=== PATIENT | male | born 1945 | race Caucasian/White ===

== ENCOUNTER 2022-07-16 12:53 | Emergency (ER) | payer MEDICARE, OTHER, SELFPAY ==
[2022-07-16 13:19] VITALS: BP 144/66; PULSE 89; RESP 14; TEMP 36.1; O2SAT 97; BMI 39.5
[2022-07-16 14:13] LABS: Add Manual Diff / Slide Review NO; Basophils Absolute Auto 100 /uL (0-100); Basophils Percent Auto 0.8 % (0-2); Eosinophils Absolute Auto 300 /uL (0-450); Eosinophils Percent Auto 4.5 % (2-4); Hematocrit 37.4 % (41-53); Hemoglobin 12.8 g/dL (13.5-17.5); Lymphocytes Absolute Auto 1200 /uL (1100-4500); Lymphocytes Percent Auto 16.5 % (25-40); Mean Corpuscular HGB Conc 34.1 % (30-36); Mean Corpuscular Hemoglobin 32.8 PG (26-34); Mean Corpuscular Volume 96.3 fL (80-100); Monocytes Absolute Auto 700 /uL (0-900); Monocytes Percent Auto 9.1 % (3-14); Neutrophils Absolute Auto 5200 /uL (1500-7000); Neutrophils Percent Auto 69.1 % (50-75); Platelet Count 275 X10^3/uL (150-400); Red Blood Cell Count 3.89 X10^6/uL (4.5-5.9); Red Cell Distribution Width 14.6 % (11.6-14.8); White Blood Cell Count 7.5 X10^3/uL (4.5-11.0)
[2022-07-16 14:25] LABS: Alanine Aminotransferase 25 IU/L (<50); Albumin 4.2 g/dL (3.5-5.0); Albumin Globulin Ratio 1.2 (1.0-2.8); Alkaline Phosphatase 62 U/L (38-126); Aspartate Aminotransferase 25 IU/L (17-59); Bilirubin Total 0.5 mg/dL (0.2-1.3); Blood Urea Nitrogen 25 mg/dL (9-20); Calcium 8.5 mg/dL (8.4-10.2); Carbon Dioxide 26 mmol/L (22-32); Chloride 104 mmol/L (98-107); Estimated Glomerular Filt Rate > 60 mL/min (>60); Globulin 3.5 g/dL (1.7-4.1); Glucose 111 mg/dL (80-110); HEMOLYSIS 31 (0-50); Lipase 83 U/L (23-300); Potassium 3.9 mmol/L (3.4-5.1); Sodium 139 mmol/L (137-145); Total Protein 7.7 g/dL (6.3-8.2)
[2022-07-16 15:36] VITALS: BP 182/81; PULSE 89; RESP 18; O2SAT 99
--- NOTE | 2022-07-16 16:09 | ED.LOWEXIN ---
HPI - Extremity Injury (Lower) <RAMONA Johnson - Last Filed: 07/16/22 16:18> General Chief Complaint: Extremity Injury, Lower Stated Complaint: leg wound T-7 days,not healing Time Seen by Provider: 07/16/22 13:26 Source: patient Mode of arrival: Ambulatory History of Present Illness HPI Narrative: 77-year-old male, never smoker on blood thinners, presents to the emergency department with suspected left lower leg cellulitis. Patient has had history of cellulitis of his left lower leg in the past. Patient states that he was working on his deck 7 days ago and was smacked on his left acharya with a 2 x 4 board that resulted in a blood blister that has now developed redness, warmth and swelling surrounding blood blister. Blood blister is weeping frequently. Patient has been keeping the area clean and dry and applying antibiotic ointment, but is concerned about developing cellulitis. Related Data Home Medications Medication Instructions Recorded Confirmed amlodipine 2.5 mg tablet (Norvasc) ##0 06/18/16 atorvastatin 10 mg tablet (Lipitor) ##0 06/18/16 hydrochlorothiazide 12.5 mg capsule ##0 06/18/16 losartan 25 mg tablet (Cozaar) ##0 06/18/16 Previous Rx's Medication Instructions Recorded sulfamethoxazole 800 1 tab PO QDAY #14 tabs 06/18/16 mg-trimethoprim 160 mg tablet cephalexin 500 mg capsule 1,000 mg PO BID Cellulitis 10 days 07/16/22 #40 caps Allergies Allergy/AdvReac Type Severity Reaction Status Date / Time No Known Drug Allergies Allergy Verified 07/16/22 13:18 Review of Systems <RAMONA Johnson - Last Filed: 07/16/22 16:18> Review of Systems Narrative: Narrative: See HPI. GENERAL: Denies chills, fatigue, fever, sweats. HEENT: Denies sinus pain, ear pain, sore throat, difficulty swallowing, dizziness. RESPIRATORY: Denies dyspnea, cough, wheezing, sputum. CARDIOVASCULAR: Denies chest pain, palpitations, edema. GASTROINTESTINAL: Denies nausea, vomiting, abdominal pain, diarrhea, constipation. : Denies dysuria, frequency, incontinence, hematuria, urinary retention, flank pain. MSK: Denies weakness, joint pain, or bony pain. SKIN: Endorses increased redness, warmth and swelling of left ahcarya. 2 in diameter blood blister. NEUROLOGIC: Denies weakness, dizziness, headache, numbness, confusion. PSYCHIATRIC: No concerning psychosocial issues. Patient History <RAMONA Johnson - Last Filed: 07/16/22 16:18> Social History Smoking Status: Never smoker Smoking Status: Never smoker alcohol intake frequency: 3 or more drinks per day Substance Use Type: does not use Exam <RAMONA Johnson - Last Filed: 07/16/22 16:18> Narrative Exam Narrative: Exam Narrative: GENERAL: This is a well-nourished, well-developed patient, in no acute distress. HEAD: Atraumatic. Normocephalic. EYES: Pupils equal round and reactive. Extraocular motions intact. No scleral icterus, injection or drainage. ENT: Nose without bleeding, purulent drainage. Airway patent. RESPIRATORY: Normal respiratory rate and effort. MSK: Moves all extremities. Normal range of motion, no clubbing or edema. Neurovascularly intact. NEURO: A&O x 3. SKIN: Warm, dry, no rashes noted. 2 in diameter bled blister on left acharya with surrounding redness, warmth and pain consistent with cellulitis. Initial Vital Signs Initial Vital Signs: Vital Signs Temperature 97.0 F L 07/16/22 13:19 Pulse Rate 89 07/16/22 13:19 Respiratory Rate 14 07/16/22 13:19 Blood Pressure 144/66 H 07/16/22 13:19 Pulse Oximetry 97 07/16/22 13:19 Oxygen Delivery Method Room Air 07/16/22 13:19 Reviewed <Ivone Handley DO - Last Filed: 07/17/22 07:35> Initial Vital Signs Initial Vital Signs: Vital Signs Temperature 97.0 F L 07/16/22 13:19 Pulse Rate 89 07/16/22 13:19 Respiratory Rate 14 07/16/22 13:19 Blood Pressure 144/66 H 07/16/22 13:19 Pulse Oximetry 97 07/16/22 13:19 Oxygen Delivery Method Room Air 07/16/22 13:19 Course <RAMONA Johnson - Last Filed: 07/16/22 16:18> Orders Ordered: ED Orders 07/16/22 13:55 Complete Blood Count AUTO DIFF Stat Comprehensive Metabolic Panel Stat Lipase Stat Vital Signs Vital signs: Vital Signs - 8 hr 07/16/22 13:19 07/16/22 15:36 Temperature 97.0 F L Pulse Rate 89 89 Respiratory Rate 14 18 Blood Pressure 144/66 H 182/81 H Pulse Oximetry 97 99 Oxygen Delivery Method Room Air Room Air <Ivone Handley DO - Last Filed: 07/17/22 07:35> Orders Ordered: ED Orders 07/16/22 13:55 Complete Blood Count AUTO DIFF Stat Comprehensive Metabolic Panel Stat Lipase Stat Vital Signs Vital signs: Vital Signs - 8 hr 07/16/22 13:19 07/16/22 15:36 Temperature 97.0 F L Pulse Rate 89 89 Respiratory Rate 14 18 Blood Pressure 144/66 H 182/81 H Pulse Oximetry 97 99 Oxygen Delivery Method Room Air Room Air MDM - Extremity Injury (Lower) <RAMONA Johnson - Last Filed: 07/16/22 16:18> Differential Diagnosis Differential diagnosis: Likely other (Cellulitis of left lower extremity) Lab Data 07/16/22 13:55 07/16/22 13:55 Labs: Lab Results 07/16/22 07/16/22 Range/Units 13:55 13:55 WBC 7.5 (4.5-11.0) X10^3/uL RBC 3.89 L (4.5-5.9) X10^6/uL Hgb 12.8 L (13.5-17.5) g/dL Hct 37.4 L (41-53) % MCV 96.3 (80-100) fL MCH 32.8 (26-34) PG MCHC 34.1 (30-36) % RDW 14.6 (11.6-14.8) % Plt Count 275 (150-400) X10^3/uL Neut % (Auto) 69.1 (50-75) % Lymph % (Auto) 16.5 L (25-40) % [place] % (Auto) 9.1 (3-14) % Eos % (Auto) 4.5 H (2-4) % Baso % (Auto) 0.8 (0-2) % Neut # (Auto) 5200 (4432-5850) /uL Lymph # (Auto) 1200 (7352-9609) /uL [place] # (Auto) 700 (0-900) /uL Eos # (Auto) 300 (0-450) /uL Baso # (Auto) 100 (0-100) /uL Sodium 139 (137-145) mmol/L Potassium 3.9 (3.4-5.1) mmol/L Chloride 104 (98-107) mmol/L Carbon Dioxide 26 (22-32) mmol/L BUN 25 H (9-20) mg/dL Creatinine 1.04 (0.66-1.25) mg/dL Estimated GFR > 60 (>60) mL/min BUN/Creatinine Ratio 24.0 H (6-22) Glucose 111 H (80-110) mg/dL Calcium 8.5 (8.4-10.2) mg/dL Total Bilirubin 0.5 (0.2-1.3) mg/dL AST 25 (17-59) IU/L ALT 25 (<50) IU/L Alkaline Phosphatase 62 (38-126) U/L Total Protein 7.7 (6.3-8.2) g/dL Albumin 4.2 (3.5-5.0) g/dL Globulin 3.5 (1.7-4.1) g/dL Albumin/Globulin Ratio 1.2 (1.0-2.8) Lipase 83 (23-300) U/L MDM Narrative Medical decision making narrative: 77-year-old male, with history left lower leg cellulitis, presents to the emergency department after injuring his left leg one-week ago. Patient denies any increased pain but is concerned that he is developing cellulitis. Assessment was consistent with cellulitis. Will treat with cephalexin for 10 days. Instructed patient to follow up with family doctor later this week to ensure symptoms are improving. Discussed strict ER return precautions, for which patient verbalized understanding and was agreeable to course of action. <Ivone Handley, DO - Last Filed: 07/17/22 07:35> Lab Data Labs: Lab Results 07/16/22 07/16/22 Range/Units 13:55 13:55 WBC 7.5 (4.5-11.0) X10^3/uL RBC 3.89 L (4.5-5.9) X10^6/uL Hgb 12.8 L (13.5-17.5) g/dL Hct 37.4 L (41-53) % MCV 96.3 (80-100) fL MCH 32.8 (26-34) PG MCHC 34.1 (30-36) % RDW 14.6 (11.6-14.8) % Plt Count 275 (150-400) X10^3/uL Neut % (Auto) 69.1 (50-75) % Lymph % (Auto) 16.5 L (25-40) % [place] % (Auto) 9.1 (3-14) % Eos % (Auto) 4.5 H (2-4) % Baso % (Auto) 0.8 (0-2) % Neut # (Auto) 5200 (6485-8078) /uL Lymph # (Auto) 1200 (2284-7138) /uL [place] # (Auto) 700 (0-900) /uL Eos # (Auto) 300 (0-450) /uL Baso # (Auto) 100 (0-100) /uL Sodium 139 (137-145) mmol/L Potassium 3.9 (3.4-5.1) mmol/L Chloride 104 (98-107) mmol/L Carbon Dioxide 26 (22-32) mmol/L BUN 25 H (9-20) mg/dL Creatinine 1.04 (0.66-1.25) mg/dL Estimated GFR > 60 (>60) mL/min BUN/Creatinine Ratio 24.0 H (6-22) Glucose 111 H (80-110) mg/dL Calcium 8.5 (8.4-10.2) mg/dL Total Bilirubin 0.5 (0.2-1.3) mg/dL AST 25 (17-59) IU/L ALT 25 (<50) IU/L Alkaline Phosphatase 62 (38-126) U/L Total Protein 7.7 (6.3-8.2) g/dL Albumin 4.2 (3.5-5.0) g/dL Globulin 3.5 (1.7-4.1) g/dL Albumin/Globulin Ratio 1.2 (1.0-2.8) Lipase 83 (23-300) U/L Discharge Plan Departure Patient Disposition: Home Clinical Impression: Left leg cellulitis Instructions: DI for Cellulitis -- Adult Activity Restrictions/Additional Instructions: *You have been diagnosed with left leg cellulitis. I will begin treatment with cephalexin for 10 days to treat her cellulitis. Please continue to keep the wound as clean and dry as possible. Please follow-up with your family doctor as needed. For any worsening symptoms, such as increased redness, warmth, swelling, yellow discharge, chest pain, shortness of breath or intolerable pain, please return to the emergency department. *What to do: *Please continue to take your regular medications as directed. [x ] New medication prescriptions sent to your pharmacy: [[facility]] [ ] New medication written as a paper prescription [ ] No new medications given *Please follow up with your primary care provider in 2-3 days, call for an appointment. Let them know you were seen in the Emergency Department and that we ask that you be seen in follow up. We will electronically transmit a record of today's note if your PCP is in our system *If you do not have a primary care provider please contact the [facility] Resource line at [phone]. They will ask some questions about your medical history and help get you set up with a doctor in the community. ? Return to ER if you should have any new, worsening or concerning symptoms, such as worsening pain, severe headache, confusion, chest pain, difficulty breathing, fever greater than 101 F, shaking chills, persistent vomiting to the point that you cannot drink fluids, or other new or worsening symptoms. Prescriptions: New cephalexin 500 mg capsule 1,000 mg PO BID 10 Days Qty: 40 0RF No Action losartan [Cozaar] 25 mg tablet Qty: 0 atorvastatin [Lipitor] 10 mg tablet Qty: 0 amlodipine [Norvasc] 2.5 mg tablet Qty: 0 hydrochlorothiazide 12.5 mg capsule Qty: 0 sulfamethoxazole-trimethoprim 800 MG/160 MG tablet 1 tab PO QDAY Qty: 14 0RF Stand Alone Forms: Patient Portal/API <Ivone Handley DO - Last Filed: 07/17/22 07:35> Cosign ED Attending Ricco[place] Attestation: I was immediately available in the department for consultation. Documentation has been reviewed.
--- NOTE | 2022-07-16 16:13 | PC.NURSE ---
Telfa and paper tape applied to wound.
== END 2022-07-16 16:16 | disposition home or self-care (01) ==
PROVIDERS: Emergency Medicine; Emergency Provider Registered Nurse
DX: L03.116 Cellulitis of left lower limb (principal)
CPT/HCPCS: 36415; 80053; 83690; 85025; 99281; 99283

== ENCOUNTER → 2022-09-20 14:10 | Outpatient (CLI) | payer MEDICARE, OTHER, SELFPAY | PROVIDERS: Visit Provider Surgery | DX: I87.2 Venous insufficiency (chronic) (peripheral) (principal); L97.222 Non-pressure chronic ulcer of left calf with fat layer exposed; R60.0 Localized edema | CPT/HCPCS: 11042; 87070; 87075; 87077; 87186; 87205; 99203 ==

== ENCOUNTER → 2022-09-22 10:19 | Outpatient (CLI) | payer MEDICARE, OTHER, SELFPAY | PROVIDERS: Visit Provider Surgery | DX: I87.2 Venous insufficiency (chronic) (peripheral) (principal); L97.822 Non-pressure chronic ulcer of other part of left lower leg with fat layer exposed; L53.9 Erythematous condition, unspecified; R60.0 Localized edema | CPT/HCPCS: 29581 ==

== ENCOUNTER → 2022-09-27 13:20 | Outpatient (CLI) | payer MEDICARE, OTHER, SELFPAY | PROVIDERS: Visit Provider Surgery | DX: I87.2 Venous insufficiency (chronic) (peripheral) (principal); L97.822 Non-pressure chronic ulcer of other part of left lower leg with fat layer exposed; Z86.718 Personal history of other venous thrombosis and embolism | CPT/HCPCS: 11042 ==

== ENCOUNTER → 2022-10-04 13:10 | Outpatient (CLI) | payer MEDICARE, OTHER, SELFPAY | PROVIDERS: Visit Provider Surgery | DX: I87.2 Venous insufficiency (chronic) (peripheral) (principal); L97.822 Non-pressure chronic ulcer of other part of left lower leg with fat layer exposed; Z86.718 Personal history of other venous thrombosis and embolism | CPT/HCPCS: 11042 ==

== ENCOUNTER → 2022-10-11 13:16 | Outpatient (CLI) | payer MEDICARE, OTHER, SELFPAY | PROVIDERS: Visit Provider Surgery | DX: I87.2 Venous insufficiency (chronic) (peripheral) (principal); L97.822 Non-pressure chronic ulcer of other part of left lower leg with fat layer exposed; Z86.718 Personal history of other venous thrombosis and embolism | CPT/HCPCS: 11042 ==

== ENCOUNTER → 2022-10-19 14:03 | Outpatient (CLI) | payer MEDICARE, OTHER, SELFPAY | PROVIDERS: Visit Provider Surgery | DX: I87.2 Venous insufficiency (chronic) (peripheral) (principal); L97.822 Non-pressure chronic ulcer of other part of left lower leg with fat layer exposed; L53.9 Erythematous condition, unspecified; Z86.718 Personal history of other venous thrombosis and embolism | CPT/HCPCS: 99212; 99213 ==

== ENCOUNTER → 2022-10-26 13:37 | Outpatient (CLI) | payer MEDICARE, OTHER, SELFPAY | PROVIDERS: Visit Provider Surgery | DX: I87.2 Venous insufficiency (chronic) (peripheral) (principal); L97.822 Non-pressure chronic ulcer of other part of left lower leg with fat layer exposed; R60.0 Localized edema; L53.9 Erythematous condition, unspecified; Z86.718 Personal history of other venous thrombosis and embolism | CPT/HCPCS: 99213 ==

== ENCOUNTER → 2023-01-18 10:55 | Outpatient (CLI) | payer MEDICARE, OTHER, SELFPAY | PROVIDERS: Visit Provider Surgery | DX: I87.2 Venous insufficiency (chronic) (peripheral) (principal); L97.821 Non-pressure chronic ulcer of other part of left lower leg limited to breakdown of skin; R60.0 Localized edema | CPT/HCPCS: 87070; 87075; 87077; 87186; 87205; 97602; 99213; 99214 ==

== ENCOUNTER → 2023-01-20 11:31 | Outpatient (CLI) | payer MEDICARE, OTHER, SELFPAY | PROVIDERS: Visit Provider Surgery | DX: I87.2 Venous insufficiency (chronic) (peripheral) (principal); L97.821 Non-pressure chronic ulcer of other part of left lower leg limited to breakdown of skin; R60.0 Localized edema | CPT/HCPCS: 29581 ==

== ENCOUNTER → 2023-01-25 15:17 | Outpatient (CLI) | payer MEDICARE, OTHER, SELFPAY | PROVIDERS: Visit Provider Surgery | DX: I87.2 Venous insufficiency (chronic) (peripheral) (principal); L97.821 Non-pressure chronic ulcer of other part of left lower leg limited to breakdown of skin; R60.0 Localized edema | CPT/HCPCS: 29581; 99213 ==

== ENCOUNTER → 2023-02-01 14:05 | Outpatient (CLI) | payer MEDICARE, OTHER, SELFPAY | PROVIDERS: Visit Provider Surgery | DX: I87.2 Venous insufficiency (chronic) (peripheral) (principal); L97.821 Non-pressure chronic ulcer of other part of left lower leg limited to breakdown of skin; R60.0 Localized edema | CPT/HCPCS: 29581; 99213 ==

== ENCOUNTER → 2023-02-08 15:26 | Outpatient (CLI) | payer MEDICARE, OTHER, SELFPAY | LOC: WC 15:28 | PROVIDERS: Visit Provider Surgery | DX: L97.821 Non-pressure chronic ulcer of other part of left lower leg limited to breakdown of skin (principal); I87.2 Venous insufficiency (chronic) (peripheral); R60.0 Localized edema | CPT/HCPCS: 29581 ==

== ENCOUNTER → 2023-02-15 11:11 | Outpatient (CLI) | payer MEDICARE, OTHER, SELFPAY | PROVIDERS: Visit Provider Surgery | DX: L97.821 Non-pressure chronic ulcer of other part of left lower leg limited to breakdown of skin (principal); I87.2 Venous insufficiency (chronic) (peripheral); R60.0 Localized edema; I10 Essential (primary) hypertension; Z86.718 Personal history of other venous thrombosis and embolism; Z79.01 Long term (current) use of anticoagulants; R21 Rash and other nonspecific skin eruption | CPT/HCPCS: 97602; 99213 ==

== ENCOUNTER → 2023-02-22 13:50 | Outpatient (CLI) | payer MEDICARE, OTHER, SELFPAY | LOC: WC 13:51 | PROVIDERS: Visit Provider Surgery | DX: I87.2 Venous insufficiency (chronic) (peripheral) (principal); L97.821 Non-pressure chronic ulcer of other part of left lower leg limited to breakdown of skin; R60.0 Localized edema; Z86.718 Personal history of other venous thrombosis and embolism; Z79.01 Long term (current) use of anticoagulants | CPT/HCPCS: 97602; 99213 ==

== ENCOUNTER → 2023-03-03 09:29 | Outpatient (CLI) | payer MEDICARE, OTHER, SELFPAY | LOC: WC 03-06 09:30 | PROVIDERS: Visit Provider Physician Assistant | DX: L97.822 Non-pressure chronic ulcer of other part of left lower leg with fat layer exposed (principal); I87.2 Venous insufficiency (chronic) (peripheral); R60.0 Localized edema; R21 Rash and other nonspecific skin eruption | CPT/HCPCS: 29581 ==

== ENCOUNTER → 2023-03-14 13:45 | Outpatient (CLI) | payer MEDICARE, OTHER, SELFPAY | LOC: WC 13:47 | PROVIDERS: Visit Provider Surgery | DX: I87.2 Venous insufficiency (chronic) (peripheral) (principal); R60.0 Localized edema; R21 Rash and other nonspecific skin eruption; Z79.01 Long term (current) use of anticoagulants | CPT/HCPCS: 99212; 99213 ==

== ENCOUNTER → 2023-03-29 14:04 | Outpatient (CLI) | payer MEDICARE, OTHER, SELFPAY | PROVIDERS: Visit Provider Surgery | DX: I87.2 Venous insufficiency (chronic) (peripheral) (principal); L53.9 Erythematous condition, unspecified; R23.4 Changes in skin texture | CPT/HCPCS: 99211; 99213 ==